=== PATIENT | male | born 1970 | race Caucasian/White ===

== ENCOUNTER 2021-03-12 10:08 | Emergency (ER) | payer SELFPAY ==
[~2021-03-12] VITALS: Ht 170.2 cm; Wt 62.3 kg
[2021-03-12] MEDS ORDERED: MUCI600T31 PO (10:16)
[2021-03-12] MEDS ORDERED: KETOROLAC 60MG 2ML VIAL IM ONE (10:35)
[2021-03-12] MEDS ORDERED: AUGMENTIN 875 MG TAB PO ONE (10:35)
[2021-03-12] MEDS ORDERED: IBUP-1022 PO (10:37)
[2021-03-12] MEDS ORDERED: AUGM875T28 PO (10:37)
[2021-03-12 11:38] VITALS: BP 128/75
[2021-04-07] MEDS ORDERED: CYCL-707 PO (07:08)
[2021-04-07] MEDS ORDERED: MOBI4TAB PO (07:08)
[2021-04-13] MEDS ORDERED: HYDR26CR TOP (09:04)
[2021-04-26] MEDS ORDERED: ACET-897 PO (08:51)
[2021-04-26] MEDS ORDERED: IBUP200T46 PO (08:53)
[2021-05-06] MEDS ORDERED: toradol PO (11:43)
[2021-05-06] MEDS ORDERED: NARC1SPR NARES (11:43)
[2021-05-06] MEDS ORDERED: PANT20TA6 PO (11:43)
[2021-05-06] MEDS ORDERED: MORP1TAB19 PO (12:53)
[2021-05-06] MEDS ORDERED: MORP15TA2 PO (12:59)
== END 2021-03-12 11:40 | disposition home or self-care (01) ==
LOC: M ED 10:08
DX: K04.7 Periapical abscess without sinus (principal); K08.89 Other specified disorders of teeth and supporting structures; F17.200 Nicotine dependence, unspecified, uncomplicated
CPT/HCPCS: 96372; 99283; J1885

== ENCOUNTER 2021-04-06 10:39 | Emergency (ER) | payer SELFPAY ==
[~2021-04-06] VITALS: Ht 172.7 cm; Wt 63.1 kg
[~2021-04-06 10:39] MED LIST: AUGM875T28 PO; IBUP-1022 PO; MUCI600T31 PO
[2021-04-06 10:40] VITALS: BP 123/80
[2021-04-06] MEDS ORDERED: IBUP200T46 PO (10:53)
[2021-04-07] MEDS ORDERED: CYCL-707 PO (07:08)
[2021-04-07] MEDS ORDERED: MOBI4TAB PO (07:08)
== END 2021-04-06 14:00 | disposition left against medical advice (07) ==
LOC: M ED 10:39
DX: Z53.21 Procedure and treatment not carried out due to patient leaving prior to being seen by health care provider (principal)

== ENCOUNTER → 2021-04-26 | Outpatient (CLI) | payer OTHER ==
[~2021-04-26] MED LIST changes: +ACET-897 PO; +CYCL-707 PO; +HOME MED LIST COMPLETE! XX SCH; +HYDR26CR TOP; +IBUP200T46 PO; +LIDOCAINE 1% MDV 20ML VIAL As Ordered ONE; +MELO15TA28 PO; +MOBI4TAB PO; +MORP-69 PO; +MORP15TA2 PO; +MORP1TAB19 PO; +NARC1SPR NARES; +ONDA-83 PO; +PANT20TA6 PO; +PROC5TAB57 PO; +toradol PO
[2021-04-26 11:20] VITALS: BP 130/81
== END ==
LOC: M IRPRO 08:32
PROVIDERS: ATTEND Internal Medicine Medical Oncology
DX: C34.11 Malignant neoplasm of upper lobe, right bronchus or lung (principal)

== ENCOUNTER → 2021-05-17 | Outpatient (CLI) | payer OTHER ==
[~2021-05-17] MED LIST changes: -HOME MED LIST COMPLETE! XX SCH; -LIDOCAINE 1% MDV 20ML VIAL As Ordered ONE; -MELO15TA28 PO; -MORP-69 PO; -ONDA-83 PO; -PROC5TAB57 PO
== END ==
LOC: M PLARAD 14:53
PROVIDERS: ATTEND Internal Medicine Medical Oncology
DX: C34.11 Malignant neoplasm of upper lobe, right bronchus or lung (principal)
CPT/HCPCS: 78815; A9552

== ENCOUNTER → 2021-05-20 | Outpatient (CLI) | payer OTHER ==
[~2021-05-20] MED LIST changes: +MELO15TA28 PO; +MORP-69 PO
== END ==
LOC: M ONCR 12:41
PROVIDERS: ATTEND General Practice
DX: C34.11 Malignant neoplasm of upper lobe, right bronchus or lung (principal); F17.210 Nicotine dependence, cigarettes, uncomplicated

== ENCOUNTER → 2021-06-02 | Outpatient (CLI) | payer OTHER ==
[~2021-06-02] MED LIST changes: +LIDOCAINE 1% MDV 20ML VIAL As Ordered ONE; +MIDAZOLAM INJ 2MG/2ML VIAL (J2250 PER 1MG) As Ordered ONE; +NS 1,000 ML IV SCH; +ceFAZolin 2 GM/D5W 50 ML IV BAG (J0690 PER 500MG) As Ordered ONE; +ceFAZolin SOD 2 GM in IV 1 EA IV ONE; +diphenhydrAMINE 50MG/ML VIAL (J1200) As Ordered ONE; +fentaNYL 100 MCG/2 ML INJECTION As Ordered ONE
[2021-06-02 17:17] VITALS: BP 129/75
== END ==
LOC: M IRPRO 11:58
PROVIDERS: ATTEND Radiology Diagnostic Radiology
DX: C34.91 Malignant neoplasm of unspecified part of right bronchus or lung (principal)
CPT/HCPCS: 36561; 99152; 99153; C1769; C1788; C1894; J0690; J1642; J1644; J2250; J3010

== ENCOUNTER → 2021-06-17 | Outpatient (RCR) | payer OTHER ==
[~2021-06-17] MED LIST changes: -LIDOCAINE 1% MDV 20ML VIAL As Ordered ONE; -MIDAZOLAM INJ 2MG/2ML VIAL (J2250 PER 1MG) As Ordered ONE; -NS 1,000 ML IV SCH; +ONDA-83 PO; +PROC5TAB57 PO; -ceFAZolin 2 GM/D5W 50 ML IV BAG (J0690 PER 500MG) As Ordered ONE; -ceFAZolin SOD 2 GM in IV 1 EA IV ONE; -diphenhydrAMINE 50MG/ML VIAL (J1200) As Ordered ONE; -fentaNYL 100 MCG/2 ML INJECTION As Ordered ONE
== END ==
LOC: M ONCR 05-31 12:40
PROVIDERS: ATTEND General Practice
DX: C34.11 Malignant neoplasm of upper lobe, right bronchus or lung (principal)

== ENCOUNTER → 2021-06-22 | Outpatient (CLI) | payer OTHER ==
[~2021-06-22] MED LIST changes: +PROHANCE 279.3MG/ML 15ML VIAL As Ordered ONE
== END ==
LOC: M RAD 08:38
PROVIDERS: ATTEND General Practice
DX: C34.11 Malignant neoplasm of upper lobe, right bronchus or lung (principal)
CPT/HCPCS: 70553; A9576

== ENCOUNTER 2021-07-16 07:49 | Outpatient (RCR) | payer OTHER ==
[~2021-07-16 07:49] MED LIST changes: -PROHANCE 279.3MG/ML 15ML VIAL As Ordered ONE
== END 2021-07-17 ==
PROVIDERS: ATTEND General Practice
DX: C34.11 Malignant neoplasm of upper lobe, right bronchus or lung (principal)

== ENCOUNTER 2021-07-28 07:41 | Outpatient (RCR) | payer OTHER | END 2021-08-17 | LOC: M ONCR 07:41 | PROVIDERS: ATTEND General Practice | DX: C34.11 Malignant neoplasm of upper lobe, right bronchus or lung (principal) ==

== ENCOUNTER → 2021-11-04 | Outpatient (CLI) | payer OTHER ==
[~2021-11-04] MED LIST changes: +GASTROGRAFIN SOLUTION 30ML (Q9963) As Ordered ONE; +ISOVUE-370 76% 100ML VIAL As Ordered ONE
== END ==
LOC: M RAD 14:18
PROVIDERS: ATTEND Internal Medicine Medical Oncology
DX: C34.11 Malignant neoplasm of upper lobe, right bronchus or lung (principal)
CPT/HCPCS: 71260; 74177; J1642; Q9963; Q9967

== ENCOUNTER → 2022-01-27 | Outpatient (CLI) | payer OTHER ==
[~2022-01-27] MED LIST changes: -GASTROGRAFIN SOLUTION 30ML (Q9963) As Ordered ONE; +GASTROGRAFIN SOLUTION 30ML As Ordered ONE
== END ==
LOC: M RAD 15:16
PROVIDERS: ATTEND Internal Medicine Medical Oncology
DX: C34.11 Malignant neoplasm of upper lobe, right bronchus or lung (principal)
CPT/HCPCS: 71260; 74177; Q9963; Q9967

== ENCOUNTER → 2022-02-02 | Outpatient (CLI) | payer OTHER ==
[~2022-02-02] MED LIST changes: -GASTROGRAFIN SOLUTION 30ML As Ordered ONE; -ISOVUE-370 76% 100ML VIAL As Ordered ONE
== END ==
LOC: M ONCR 08:04
PROVIDERS: ATTEND General Practice
DX: C34.11 Malignant neoplasm of upper lobe, right bronchus or lung (principal); F17.210 Nicotine dependence, cigarettes, uncomplicated; Z79.1 Long term (current) use of non-steroidal anti-inflammatories (NSAID); Z79.899 Other long term (current) drug therapy; Z87.891 Personal history of nicotine dependence; Z92.21 Personal history of antineoplastic chemotherapy; Z92.3 Personal history of irradiation

== ENCOUNTER → 2022-06-15 | Outpatient (CLI) | payer OTHER ==
[~2022-06-15] MED LIST changes: +GASTROGRAFIN SOLUTION 30ML As Ordered ONE; +ISOVUE-370 76% 100ML VIAL As Ordered ONE
== END ==
LOC: M RAD 08:37
PROVIDERS: ATTEND Nurse Practitioner
DX: C34.91 Malignant neoplasm of unspecified part of right bronchus or lung (principal)
CPT/HCPCS: 71260; 74177; Q9963; Q9967

== ENCOUNTER → 2022-07-29 | Outpatient (CLI) | payer OTHER ==
[~2022-07-29] MED LIST changes: -GASTROGRAFIN SOLUTION 30ML As Ordered ONE; -ISOVUE-370 76% 100ML VIAL As Ordered ONE
== END ==
LOC: M ONCR 10:31
PROVIDERS: ATTEND General Practice
DX: Z08 Encounter for follow-up examination after completed treatment for malignant neoplasm (principal); Z85.110 Personal history of malignant carcinoid tumor of bronchus and lung; Z79.620 Long term (current) use of immunosuppressive biologic; Z92.21 Personal history of antineoplastic chemotherapy; Z92.3 Personal history of irradiation

== ENCOUNTER 2024-04-01 05:17 | Emergency (ER) | payer OTHER, SELFPAY ==
[~2024-04-01] VITALS: Ht 170.2 cm; Wt 61.8 kg
[2024-04-01 09:25] LABS: VENOUS BASE EXCESS 1.7 (-2.0-2.0); VENOUS HCO3 26.1 MMOL/L (23.0-27.0); VENOUS O2 SATURATION 80.3 % (60.0-80.0); VENOUS PARTIAL PRESSURE CO2 40.2 mmHg (38.0-50.0); VENOUS STANDARD HCO3 25.5 MMOL/L; VENOUS TOTAL CO2 27.3 MMOL/L (24.0-28.0)
[2024-04-01 09:35] LABS: BASO % 0.3 % (0.0-1.0); EOS % 0.1 % (0.0-3.0); HEMATOCRIT 46.7 % (42.0-52.0); HEMOGLOBIN 16.5 g/dl (13.5-17.5); LYMPH % 12.2 % (24.0-44.0); MEAN CORPUSCULAR HEMOGLOBIN 32.9 pg (27.0-33.0); MEAN CORPUSCULAR HGB CONC 35.3 g/dl (32.0-36.5); MONO # 1.1 10^3/uL (0.0-0.8); MONO % 13.7 % (2.0-8.0); NEUTROPHILS # 5.8 10^3/uL (1.5-8.5); NEUTROPHILS % 73.2 % (36.0-66.0); PLATELET COUNT, AUTOMATED 236 10^3/uL (150-450); RED BLOOD COUNT 5.02 10^6/uL (4.30-6.10); WHITE BLOOD COUNT 7.9 10^3/uL (4.0-10.0)
[2024-04-01 09:58] LABS: ALKALINE PHOSPHATASE 90 U/L (40-129); ALT/SGPT 38 U/L (7.0-40); AST/SGOT 50 U/L (<34); BILIRUBIN,DIRECT 0.2 MG/DL (<0.4); BILIRUBIN,TOTAL 0.5 MG/DL (0.3-1.2); BLOOD UREA NITROGEN 11 MG/DL (9-23); CALCIUM LEVEL 8.6 MG/DL (8.5-10.1); CARBON DIOXIDE LEVEL 27 MMOL/L (20-31); CHLORIDE LEVEL 97 MMOL/L (98-107); CREATININE FOR GFR 0.74 MG/DL (0.70-1.30); GLOMERULAR FILTRATION RATE > 60.0 (>56); GLUCOSE, FASTING 115 MG/DL (60-100); POTASSIUM SERUM 4.3 MMOL/L (3.5-5.1); SODIUM LEVEL 133 MMOL/L (136-145); TOTAL PROTEIN 6.6 G/DL (5.7-8.2)
[2024-04-01] MEDS ORDERED: AMOX875T2 PO (11:22)
[2024-04-01] MEDS ORDERED: VENTAER INH (11:25)
[2024-04-01] MEDS ORDERED: BREAMIS10 MC (11:25)
[2024-04-01 11:47] VITALS: BP 129/75; TEMP 98.4; O2SAT 95
== END 2024-04-01 11:49 | disposition home or self-care (01) ==
LOC: M ED 05:17
DX: J18.9 Pneumonia, unspecified organism (principal); C34.90 Malignant neoplasm of unspecified part of unspecified bronchus or lung; F10.10 Alcohol abuse, uncomplicated; Z87.891 Personal history of nicotine dependence; Z87.442 Personal history of urinary calculi; Z79.52 Long term (current) use of systemic steroids; Z79.2 Long term (current) use of antibiotics

== ENCOUNTER → 2024-10-11 | Outpatient (CLI) | payer OTHER ==
[~2024-10-11] MED LIST changes: +AMOX875T2 PO; +BREAMIS10 MC; +VENTAER INH
== END ==
LOC: M OUTALCOH 10:48
PROVIDERS: ATTEND Psychiatry & Neurology Psychiatry
DX: F10.10 Alcohol abuse, uncomplicated (principal); F17.200 Nicotine dependence, unspecified, uncomplicated

== ENCOUNTER 2024-11-13 08:50 | Outpatient (RCR) | payer OTHER ==
[~2024-11-13 08:50] MED LIST changes: -IBUP-1022 PO; +IBUP600T42 PO
== END 2024-11-17 ==
LOC: M OUTALCOH 08:50
PROVIDERS: ATTEND Psychiatry & Neurology Psychiatry
DX: F10.10 Alcohol abuse, uncomplicated (principal); F17.200 Nicotine dependence, unspecified, uncomplicated
CPT/HCPCS: 99211; G0397

== ENCOUNTER → 2024-12-17 | Outpatient (RCR) | payer OTHER | LOC: M OUTALCOH 11-19 16:00 | PROVIDERS: ATTEND Psychiatry & Neurology Psychiatry | DX: F10.10 Alcohol abuse, uncomplicated (principal); F17.200 Nicotine dependence, unspecified, uncomplicated | CPT/HCPCS: 99203; G0397 ==

== ENCOUNTER 2025-01-13 09:50 | Outpatient (RCR) | payer OTHER ==
[~2025-01-13 09:50] MED LIST changes: +MORP15TASA PO; -MORP1TAB19 PO; -PROC5TAB57 PO; +PROC5TAB81 PO
== END 2025-01-17 ==
LOC: M OUTALCOH 09:50
PROVIDERS: ATTEND Psychiatry & Neurology Psychiatry
DX: F10.10 Alcohol abuse, uncomplicated (principal); F17.200 Nicotine dependence, unspecified, uncomplicated

== ENCOUNTER 2025-02-05 13:22 | Outpatient (RCR) | payer OTHER | END 2025-02-16 | LOC: M OUTALCOH 13:22 | PROVIDERS: ATTEND Psychiatry & Neurology Psychiatry | DX: F10.10 Alcohol abuse, uncomplicated (principal); F17.200 Nicotine dependence, unspecified, uncomplicated ==